=== PATIENT | male | born 1970 | race American Indian/Alaskan Native ===

== ENCOUNTER 2017-02-16 11:06 | Day surgery (SDC) | payer OTHER ==
[2017-02-16] MEDS ORDERED: NACL 0.9% 1000 ML 1,000 ML IV SCH (12:00)
[2017-02-16] MEDS ORDERED: XYLOCAINE MPF 2% ONE (12:00)
--- NOTE | 2017-02-16 12:14 | Anesthesia Consultation ---
Anesthesia Consult and Med Hx Date of service: 02/16/17 - Airway Anesthetic Teeth Evaluation: Poor, Chipped (top front) ROM Head & Neck: Adequate Mental/Hyoid Distance: Adequate Mallampati Class: Class II Intubation Access Assessment: Probably Good - Pulmonary Exam CTA: Yes - Cardiac Exam Cardiac Exam: RRR - Pre-Operative Health Status ASA Pre-Surgery Classification: ASA2 Proposed Anesthetic Plan: MAC - Pulmonary Hx Smoking: Yes (1/2 PPD) Hx Asthma: Yes (10YRS) - Cardiovascular System Hx Hypertension: Yes (15YRS) - Central Nervous System Hx Back Pain: Yes
--- NOTE | 2017-02-16 12:15 | Anesthesia Day of Surgery ---
Anesthesia Day of Surgery - Day of Surgery Patient Examined: Yes Patient H&P Reviewed: Yes Patient is NPO: Yes
[2017-02-16] MEDS ORDERED: DIPRIVAN 10 MG/ML IV ONE ×3 (13:53→14:54)
[2017-02-16] MEDS ORDERED: WATER FOR IRRIG STERILE IR ONE (14:00)
--- NOTE | 2017-02-16 14:54 | History and Physical Report ---
History of Present Illness Date of examination: 02/16/17 Date of admission: 02/16/2017 Chief complaint: Colorectal cancer screening. History of present illness: Patient is a 46-year-old male who presents for colorectal cancer screening. He denies any additional complaints. Past History Past Medical History: COPD, hypertension Past Surgical History: No surgical history Social history: alcohol abuse. denies: smoking Medications and Allergies Allergies Allergy/AdvReac Type Severity Reaction Status Date / Time No Known Allergies Allergy Verified 08/12/16 01:46 Home Medications Medication Instructions Recorded Confirmed Last Taken Type Albuterol Sulfate [Ventolin HFA] 2 puff IN Q4-6H PRN 08/12/16 02/13/17 Unknown History Hydrochlorothiazide [HCTZ] 25 mg PO QDAY 08/12/16 02/16/17 02/16/17 History Metoclopramide [Reglan] 10 mg PO TID PRN #12 tab 08/12/16 02/16/17 02/15/17 Rx Pantoprazole [Protonix] 40 mg PO QDAY #14 tablet 08/12/16 02/16/17 02/15/17 Rx amLODIPine [Norvasc] 10 mg PO DAILY 08/12/16 02/16/17 02/16/17 History FLUoxetine [PROzac] 20 mg PO QDAY 02/13/17 02/16/17 02/15/17 History Fluticasone Propionate [Flovent 1 puff IH BID 02/13/17 02/13/17 Unknown History Diskus] Gabapentin [Gralise] 300 mg PO TID 02/13/17 02/16/17 02/15/17 History Active Meds: Active Medications Sodium Chloride (Nacl 0.9% 1000 Ml) 1,000 mls @ 50 mls/hr IV DIRECT HEIDI Last Admin: 02/16/17 11:47 Dose: 50 mls/hr Review of Systems All systems: negative Exam - Constitutional Vitals: Temp Pulse Resp BP Pulse Ox 97.7 F 75 12 111/67 99 02/16/17 11:42 02/16/17 11:42 02/16/17 11:42 02/16/17 11:42 02/16/17 11:42 General appearance: Present: no acute distress, well-nourished - EENT Eyes: Present: PERRL ENT: hearing intact, clear oral mucosa - Neck Neck: Present: supple, normal ROM - Respiratory Respiratory effort: normal Respiratory: bilateral: CTA - Cardiovascular Heart Sounds: Present: S1 & S2. Absent: rub, click - Extremities Extremities: pulses symmetrical, No edema Peripheral Pulses: within normal limits - Abdominal General gastrointestinal: Present: soft, non-tender, non-distended, normal bowel sounds Male genitourinary: Present: normal - Integumentary Integumentary: Present: clear, warm, dry - Musculoskeletal Musculoskeletal: gait normal, strength equal bilaterally - Psychiatric Psychiatric: appropriate mood/affect, intact judgment & insight - Neurologic Neurologic: CNII-XII intact, moves all extremities Assessment and Plan Colorectal cancer screening. Plan: Colonoscopy.
--- NOTE | 2017-02-16 14:59 | Operative Report ---
Operative Report Operative Report: Date of procedure: 02/16/2017 Procedure: Colonoscopy with snare polypectomy, submucosal injection, multiple hot biopsy polypectomies, polyp ablations. Attending physician: Madi Valdez MD Air Filler: Madi Valdez MD Indication: 46-year-old male who presents for colorectal cancer screening. A colonoscopy is done to evaluate patient so that treatment may be directed based on the findings. Consent: Informed consent was obtained after advising the patient and family regarding nature of this procedure, its indications, potential benefits as well as possible complications including but not limited to bleeding perforation and adverse reaction to medication, infection as well as other cardiopulmonary complications. An informed written and verbal consent was then obtained after due opportunity was provided for questions and answers. Monitoring: Patient was monitored continuously with pulse oximetry and electrocardiographic recordings as well as blood pressure recordings. Vital signs remained stable throughout this procedure with no untoward events. Preoperative assessment: Patient was assessed immediately prior to this procedure for capacity to tolerate monitored anesthesia care and moderate sedation as well as general anesthesia. Patient's ASA classification is 2, Mallampati class is 2, Hyomental distance is 3. Instrument: [employer] video colonoscope Medications: Propofol, given intravenously in divided doses. For details please refer to anesthesia records. Description of procedure: Patient was placed in the left lateral decubitus position after achieving sedation, a digital rectal examination was performed following which the colonoscope was introduced into the anal verge and advanced to the cecum which was identified by the cecal valve, the appendiceal orifice, as well as by the cecal strap and direct transillumination. The colonoscope was subsequently withdrawn with careful inspection of all mucosal surfaces. Patient tolerated this procedure well and was subsequently taken to the recovery room. The following findings were noted. Findings: Patient had stool in the cecum. There also was some stool in the ascending colon. At the hepatic flexure, there was a diminutive sessile polyp which was removed biopsy polypectomy and retrieved. Adjoining this is another broad-based 1.5 cm polyp. It was flat. It was elevated saline injection and removed by snare electrocautery and retrieved. This site was further ablated. In the sigmoid colon, there were multiple diminutive polyps which were removed by hot biopsy polypectomy. Some of the polyps measured 3-4 mm and were ablated. In the rectum, there were 3 additional polyps that were removed by hot biopsy polypectomy. There were 2 additional diminutive flat polyps that were ablated. On the retroflex view at the anal verge, patient had internal hemorrhoids. Impression: Multiple colon polyps status post polypectomy by hot biopsy polypectomy snare polypectomy polyp ablation and submucosal injection. Internal hemorrhoids. Plan: Follow pathology report High-fiber diet Consider repeat colonoscopy in 5 years if polyps are adenomatous.
--- NOTE | 2017-02-16 15:00 | Discharge Summary ---
Short Stay Discharge Plan Activity: advance as tolerated Weight Bearing Status: Weight Bear as Tolerated Diet: regular Follow up with: PRIMARY CARE, [Primary Care Provider] - 7 Days
[2017-02-16 15:12] VITALS: BP 131/84
== END 2017-02-16 11:07 | disposition home or self-care (01) ==
LOC: GIO 11:06
PROVIDERS: ATTEND Internal Medicine Gastroenterology
DX: Z12.11 Encounter for screening for malignant neoplasm of colon (principal); K63.5 Polyp of colon; K62.1 Rectal polyp; K64.8 Other hemorrhoids; J45.909 Unspecified asthma, uncomplicated; I10 Essential (primary) hypertension; F10.10 Alcohol abuse, uncomplicated; F17.210 Nicotine dependence, cigarettes, uncomplicated; J44.9 Chronic obstructive pulmonary disease, unspecified; Z79.899 Other long term (current) drug therapy
CPT/HCPCS: 45381; 45384; 45385; 45388; 88305; J2704; J7030